=== PATIENT | male | born 1985 | race Caucasian/White ===

== ENCOUNTER 2020-05-01 10:11 | Emergency (ER) | payer OTHER, SELFPAY ==
[2020-05-01 10:19] VITALS: BP 131/88; PULSE 82; RESP 15; TEMP 36.4; O2SAT 99
--- NOTE | 2020-05-01 10:24 | DI.RAD.S_ITS ---
PROCEDURE: XR SHOULDER RT MIN 2V INDICATIONS: atraumatic right shoulder pain TECHNIQUE: 3 views of the shoulder were acquired. COMPARISON: None. FINDINGS: Bones: No fractures or dislocations. No suspicious bony lesions. Visualized ribs appear intact. Soft tissues: No suspicious soft tissue calcifications. The visualized lung demonstrates an unremarkable appearance. IMPRESSION: Unremarkable right shoulder plain films. If it would be helpful for clinical management decision making, please consider a dedicated, scheduled shoulder MRI for further evaluation (assuming that there is no contraindication). If there is strong clinical concern for a labral abnormality, this should be performed according to the arthrogram protocol. Dictated by: Samuel Salazar M.D. on 05/01/2020 at 9:41 Approved by: Samuel Salazar M.D. on 05/01/2020 at 9:41
--- NOTE | 2020-05-01 10:27 | ED_ITS ---
HPI - Extremity Problem <COOPER Garcia - Last Filed: 05/01/20 11:38> General Chief complaint: Extremity Problem,Nontraumatic Stated complaint: woke up with right shoulder pain Time Seen by Provider: 05/01/20 10:19 Source: patient Mode of arrival: Ambulatory Limitations: no limitations History of Present Illness HPI Narrative: This is a 35 year old male, smoker, who has no contributory medical history presents to ED with significant other with chief complain of nontraumatic focalized right anterior shoulder pain that radiates to neck and little finger with movements. Right dominant hand. Patient reports pain started when he woke up yesterday morning and he has limited range of motion with forward flexion not more than 45 degree due to severe pain. Patient describes pain as sharp. Patient reports no pain at this time at rest. Patient denies previous shoulder injuries. Patient reports during sleep at times he has experience occasional deep pop on affected arm. 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 Related Data Home Medications Medication Instructions Recorded Confirmed ibuprofen 800 mg PO Q8H PRN 05/01/20 05/01/20 vitamin B complex [B 1 tab PO DAILY 05/01/20 05/01/20 Complex-Vitamin B12] Allergies Allergy/AdvReac Type Severity Reaction Status Date / Time No Known Drug Allergies Allergy Verified 05/01/20 10:23 Review of Systems <COOPER Garcia - Last Filed: 05/01/20 11:38> Review of Systems Narrative: General: Denies fever, chills, fatigue, malaise, sweats. Respiratory: Denies dyspnea, cough, wheezing, hemoptysis, sputum. Cardiovascular: Denies chest pain, palpitations, orthopnea, edema. Gastrointestinal: Denies nausea, vomiting, abdominal pain, diarrhea, constipation, melena. Musculoskeletal: See HPI Skin: Denies rash, skin lesions, or other. Neurologic: Denies weakness, headache, numbness, change in speech, confusion, seizures, incoordination. Patient History <COOPER Garcia - Last Filed: 05/01/20 11:38> Medical History (Updated 05/01/20 @ 11:28 by COOPER Garcia) No significant past medical history Social History Smoking Status: Current every day smoker Smoking Status: Current every day smoker alcohol intake frequency: 0-2 drinks per day Substance Use Type: does not use Exam <COOPER Garcia - Last Filed: 05/01/20 11:38> Narrative Exam Narrative: GEN: Alert, oriented x 3, well appearing and nourished, and in no acute distress. Head: Normal cephalic, atraumatic. No scalp or temporal tenderness, palpable mass or rash. EYES: Pupils are equal, round, and reactive to light and accommodation. Extraocular muscles are intact bilaterally. There is no subconjunctival hemorrhage, exudate and sclera non-icteric. ENT: Hearing grossly intact. Airway patent. Neck: Trachea in midline. No JVD, non-tender without lymphadenopathy. No masses or thyroid megaly. Supple, non-tender and no meningeal signs. CARDIAC: Normal regular rate and rhythm without murmurs, gallops, or rubs. No chest wall tenderness. No peripheral edema, cyanosis or pallor. Capillary refill is less than 2 seconds. RESPIRATORY: Lungs are clear to auscultate bilaterally. No cough, wheezes, rales, or rhonchi. No stridor, respiratory distress, increase work of breathing, or accessary muscle used. ABD: Abdomen soft, nontender and non-distended. No guarding or rebound tenderness to palpate. Bowel sounds are normal in all 4 quadrants. There is no palpable masses or organomegaly. EXT: Full painless ROM of all extremities with no loss of sensation, strength, effusion or edema. SKIN: Warm, dry, normal color for patient. No erythema, lesions or rash over visible areas. BACK: Nontender without deformity or crepitance. No flank tenderness. NEUROLOGICAL: Alert and oriented to place, time and person. Sensation and motor function intact bilaterally. No facial droops, dysphasia. PSYCHIATRIC: Good judgement and reason, without hallucinations, abnormal affect or abnormal behaviors during the examination. Patient is not suicidal. Initial Vital Signs Initial Vital Signs: Vital Signs Temperature 97.6 F 05/01/20 10:19 Pulse Rate 82 05/01/20 10:19 Respiratory Rate 15 05/01/20 10:19 Blood Pressure 131/88 05/01/20 10:19 Pulse Oximetry 99 05/01/20 10:19 Extrem Right upper extremity: shoulder/upper arm Details: tenderness Location: of the A-C joint, axillary nerve sensory function normal, abnormal ROM Details: held in an abnormal fashion Details: in ABduction and in internal rotation, pain with active ROM and pain with passive ROM and other (pain with forward flexion and abduction); no swelling, no ecchymosis, no crepitus and no deformity, wrist Details: normal vascular exam and radial pulse present and hand Details: normal to inspection, neuromotor exam normal, neurosensory exam normal, tendon exam normal, vascular exam Details: radial pulse present, normal ROM of fingers and no swelling; no tenderness <Sina Pierce DO - Last Filed: 05/01/20 12:42> Initial Vital Signs Initial Vital Signs: Vital Signs Temperature 97.6 F 05/01/20 10:19 Pulse Rate 82 05/01/20 10:19 Respiratory Rate 15 05/01/20 10:19 Blood Pressure 131/88 05/01/20 10:19 Pulse Oximetry 99 05/01/20 10:19 Procedures <COOPER Garcia - Last Filed: 05/01/20 11:38> Orthopedic Splinting/Casting Injury #1: Side: right Upper Extremity Injury Location: shoulder Upper Extremity Immobilizer: sling/shoulder immobilizer Post splinting neuro exam: intact Post splinting vascular exam: intact Placed by: Nursing Scores <COOPER Garcia - Last Filed: 05/01/20 11:38> GCS [place] coma scale eye opening: Spontaneous [place] coma scale verbal response: Orientated [place] coma scale motor response: Obey commands [place] coma scale total score: 15 Course <COOPER Garcia - Last Filed: 05/01/20 11:38> Orders Ordered: ED Orders 05/01/20 10:24 XR shoulder RT min 2V Stat Discontinued Medications Acetaminophen (Acetaminophen 325 Mg Tablet) 650 mg PO NOW ONE Stop: 05/01/20 10:40 Last Admin: 05/01/20 11:40 Dose: 650 mg Documented by: DIANA Cyclobenzaprine HCl (Cyclobenzaprine 10 Mg Tablet) 10 mg PO NOW ONE Stop: 05/01/20 10:40 Last Admin: 05/01/20 11:40 Dose: 10 mg Documented by: DIANA Ibuprofen (Ibuprofen 400 Mg Tablet) 400 mg PO NOW ONE Stop: 05/01/20 10:40 Last Admin: 05/01/20 11:40 Dose: 400 mg Documented by: DIANA Vital Signs Vital signs: Vital Signs - 8 hr 05/01/20 10:19 05/01/20 10:31 05/01/20 11:42 Temperature 97.6 F Pulse Rate 82 70 Pulse Rate [Right Radial] 70 Respiratory Rate 15 14 Blood Pressure 131/88 131/78 Pulse Oximetry 99 99 <Sina Pierce DO - Last Filed: 05/01/20 12:42> Orders Ordered: ED Orders 05/01/20 10:24 XR shoulder RT min 2V Stat Discontinued Medications Acetaminophen (Acetaminophen 325 Mg Tablet) 650 mg PO NOW ONE Stop: 05/01/20 10:40 Last Admin: 05/01/20 11:40 Dose: 650 mg Documented by: DIANA Cyclobenzaprine HCl (Cyclobenzaprine 10 Mg Tablet) 10 mg PO NOW ONE Stop: 05/01/20 10:40 Last Admin: 05/01/20 11:40 Dose: 10 mg Documented by: DIANA Ibuprofen (Ibuprofen 400 Mg Tablet) 400 mg PO NOW ONE Stop: 05/01/20 10:40 Last Admin: 05/01/20 11:40 Dose: 400 mg Documented by: DIANA Vital Signs Vital signs: Vital Signs - 8 hr 05/01/20 10:19 05/01/20 10:31 05/01/20 11:42 Temperature 97.6 F Pulse Rate 82 70 Pulse Rate [Right Radial] 70 Respiratory Rate 15 14 Blood Pressure 131/88 131/78 Pulse Oximetry 99 99 MDM - Extremity (Nontraumatic) <COOPER Garcia - Last Filed: 05/01/20 11:38> Differential Diagnosis Differential diagnosis: Likely other (shoulder impingement, shoulder strain, OA) Medical Records Attestation: I reviewed the patient's medical records. Imaging Data XR-Shoulder RT: Radiologist's Impression: [address] [address] ReportSigned Patient: John Mooney CMR#: [id number]: [id number]:[id number]/Sex: 35 / MDate of Service: 05/01/20Loc: EDAccession Number: [id number] Procedure: XR shoulder RT min 2V Ordering Provider: Graham Zurita PROCEDURE: XR SHOULDER RT MIN 2V INDICATIONS: atraumatic right shoulder pain TECHNIQUE: 3 views of the shoulder were acquired. COMPARISON: None. FINDINGS: Bones: No fractures or dislocations. No suspicious bony lesions. Visualized ribs appear intact. Soft tissues: No suspicious soft tissue calcifications. The visualized lung demonstrates an unremarkable appearance. IMPRESSION: Unremarkable right shoulder plain films. If it would be helpful for clinical management decision making, please consider a dedicated, scheduled shoulder MRI for further evaluation (assuming that there is no contraindication). If there is strong clinical concern for a labral abnormality, this should be performed according to the arthrogram protocol. Dictated by: Samuel Salazar M.D. on 05/01/2020 at 9:41 Approved by: Samuel Salazar M.D. 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 Good strength but limited active and passive range of motion with forward flexion and abduction due to discomfort. Patient has intact sensation and distal pulses. Xray test result without acute findings such as fractures or dislocations. Spouse inquiring about shoulder injection and [place] Patient's physical exam concerned for shoulder impingement. Advised to use [id number] Tylenol and or Motrin as needed for discomfort. Shoulder sling for comfort but reminded to stretch and exercise affected shoulder out of sling several times a day to prevent frozen shoulder symptoms. Patient advised to follow-up with PCP for possible referral to physical therapist for conservative therapy and possible advanced imaging test if pain persists or worsen. Patient declined lidocaine patch and states will use [id number] Tylenol and Motrin as needed for discomfort. Return precautions discussed and he verbalized understanding and agreement with the treatment plan. Discharge Plan Departure Patient Disposition: Home Clinical Impression: Acute shoulder pain Qualifiers: Laterality: right Qualified Code(s): M25.511 - Pain in right shoulder Instructions: DI for Shoulder Pain Activity Restrictions/Additional Instructions: You have been diagnosed with [nontraumatic right shoulder pain. X-ray test does not show acute findings such as fracture or dislocation. Sling applied on affected arm, ensure to stretching exercise several times a day to prevent frozen shoulder]. What to do: *Take your medications as directed. You can take [id number] Tylenol and or Motrin as needed for discomfort. Tylenol 650-1000 mg up to 3 times a day. Ibuprofen 400-600 mg up to 3 times a day with food to decrease GI irritations. *Follow up with your primary care provider in 2-3 days, call for an appointment. Let them know you were seen in the ED and that we asked you to be seen in follow up. *Return to ED if you have any new, worsening, or concerning symptoms, such as chest pain, difficulty breathing, unable to tolerate fluids, worsening pain, rash, tingling/numbness/weakness to affected arm or any acute concerns]. Prescriptions: No Action ibuprofen 800 mg Tablet 800 mg PO Q8H PRN (Reason: Pain (Scale Score 4-6)) RF: 0 vitamin B complex [B Complex-Vitamin B12] Tablet 1 tab PO DAILY RF: 0 Referrals: [facility] [Outside] <Sina Pierce, DO - Last Filed: 05/01/20 12:42> Cosign ED Attending Cosignature Attestation: Dr Pierce Co-Sign Statement: I was available for consultation during this patient's emergency department visit. This chart is signed by myself for administrative purposes only. I did not have direct contact with this patient during this visit. They were seen independently by the APC.
[2020-05-01 10:31] VITALS: PULSE 70
[2020-05-01] MEDS: ACETAMINOPHEN 325 MG TABLET 650 MG PO (11:40)
[2020-05-01] MEDS: IBUPROFEN 400 MG TABLET PO (11:40)
[2020-05-01] MEDS: CYCLOBENZAPRINE 10 MG TABLET PO (11:40)
[2020-05-01 11:42] VITALS: BP 131/78; PULSE 70; RESP 14; O2SAT 99
== END 2020-05-01 11:58 | disposition home or self-care (01) ==
PROVIDERS: Emergency Provider Nurse Practitioner Family
DX: M25.511 Pain in right shoulder (principal)
CPT/HCPCS: 73030; 99281; 99283